=== PATIENT | male | born 1965 | race Caucasian/White ===

== ENCOUNTER 2016-11-06 12:04 | Day surgery (SDC) | payer OTHER ==
[~2016-11-06] VITALS: Ht 188 cm; Wt 81.8 kg
[~2016-11-06 12:04] MED LIST: 0.9% Sodium Chloride 1,000 ML IV SCH; DOCU-41 PO; MULT1CAP33 PO; NIFEDIPINE OINTMENT TOPICAL; NITR30OI5 RC; Sodium Chloride LOK Flush 10 mL Syringe IV PRN; fentaNYL-PF 50 mCg/mL 2 mL Inj IVPUSH PRN
[2016-11-06 12:24] VITALS: BP 145/87; PULSE 67; RESP 16; O2SAT 98
[2016-11-06 13:09] VITALS: BP 150/89; PULSE 64; RESP 16; O2SAT 100
--- NOTE | 2016-11-09 07:36 | ENDO ---
[address] [address] ENDOSCOPY PROCEDURE PATIENT: GAUTAM SILVA : 1965 MR#: [id number] ADMIT: 11/06/2016 JOB ID: [id number] DATE OF SERVICE: 11/06/2016 TYPE OF OPERATION: Colonoscopy with biopsy. PREOPERATIVE DIAGNOSIS(ES): 1. History of anal fissures. 2. Colorectal cancer screening. POSTOPERATIVE DIAGNOSIS(ES): Normal colonoscopy, status post biopsy. ANESTHESIA: None. COMPLICATIONS: None. BLOOD LOSS: Minimal. DESCRIPTION OF PROCEDURE: After risks and benefits explained to the patient, informed consent was obtained. After anesthesia administered, colonoscope was then inserted from the rectum to the terminal ileum. Mucosa carefully examined. Prep of the patient was excellent. After procedure was done, the scope withdrawn and procedure terminated. FINDINGS: Upon inspection of the anus, there was an anal fissure that was seen. Throughout the entire examination, there were no polyps, masses, or lesions. Biopsies taken at terminal ileum and random colon to rule out IBD, microscopic colitis. Retroflexion was normal. IMPRESSION: 1. History of anal fissures. 2. Otherwise normal colonoscopy, status post biopsy. RECOMMENDATION: Await pathology results. Follow up in GI clinic as needed.
--- NOTE | 2016-11-09 14:03 | PATH ---
SURGICAL PATHOLOGY Attending Physician:Reggie Womack MD CASE STATUS: Signed Out PATIENT NAME: GAUTAM SILVA PID: [id number] : 1965 DATE COLLECTED:11/06/2016 21:06 SPECIMEN: 1: Ileum, Biopsy 2: Colon, Biopsy CLINICAL HISTORY: 1). TERMINAL ILEUM BIOPSY 2). RANDOM COLON BIOPSY FINAL DIAGNOSIS: 1.TERMINAL ILEUM BIOPSY: FRAGMENTS OF NORMAL-APPEARING TERMINAL ILEUM MUCOSA. Negative for granulomas. Negative for significant inflammation, dysplasia and malignancy. 2.RANDOM COLON BIOPSY: SINGLE FOCUS OF CHRONIC ACTIVE INFLAMMATION WITH LYMPHOID HYPERPLASIA. REMAINING COLON FRAGMENTS APPEAR ESSENTIALLY NORMAL WITH NO SIGNIFICANT ARCHITECTURAL DISTORTION, DYSPLASIA OR MALIGNANCY. ICD10 CODE R19.7 GROSS DESCRIPTION: Received are two formalin-filled containers, both labeled with the patient' s name: 1. Received in formalin, labeled with the patient' s name and "TI biopsy", are two fragments of foster, soft tissue ranging in size from 0.1 x 0.1 x 0.1 cm to 0.2 x 0.1 x 0.1 cm. All fragments are totally submitted in cassette 1A. 2. Received in formalin, labeled with the patient' s name and "random colon biopsies", are multiple fragments of foster, soft tissue ranging in size from 0.1 x 0.1 x 0.1 cm to 0.2 x 0.2 x 0.1 cm. All fragments are totally submitted in cassette 2A. ([id number]) MICRO DESCRIPTION: See diagnosis. ICD-9 CODES: CPT CODES: 1: 47885 2: 43268 Electronically Signed Out Sawyer James MD [facility] Pathology [facility] [address], [place] [address] Technical component performed at [facility], [facility] [address], [place], [address]
== END 2016-11-06 23:59 | disposition home or self-care (01) ==
LOC: END 12:04
PROVIDERS: ATTEND Internal Medicine Gastroenterology
DX: Z12.11 Encounter for screening for malignant neoplasm of colon (principal); R19.7 Diarrhea, unspecified; K60.1 Chronic anal fissure
CPT/HCPCS: 45380; G0500; J7030